=== PATIENT | male | born 1950 | race Caucasian/White ===

== ENCOUNTER 2019-04-23 06:56 | Day surgery (SDC) | payer MEDICARE, BC, SELFPAY ==
[2019-04-23 07:21] VITALS: BP 145/83; PULSE 54; RESP 16; TEMP 36.5; O2SAT 97
--- NOTE | 2019-04-23 07:24 | W.PM.HP.N ---
Date of service: 04/23/19 Time of Service: 07:24 History of Present Illness History of Present Illness Chief Complaint: Symptomatic soft tissue mass left forefoot Narrative: 68-year-old male with increasing pain associated with a soft tissue mass in the second intermetatarsal space of the left foot. He is experiencing pain with weightbearing exacerbated with shoe gear utilization. [facility] Medical History Cerebrovascular disease (Acute) Cervical radiculopathy (Acute) Glaucoma (Chronic) HTN (hypertension) (Chronic) Hyperlipidemia (Acute) Primary erectile dysfunction (Acute) Rheumatoid arthritis (Chronic) Surgical History Hx of colonoscopy (Chronic) Hx of elbow surgery (Acute) Hx of knee surgery (Acute) Social History Smoking/Tobacco Use Status: Current every day Tobacco Type: cigarettes Alcohol Intake: current Alcohol Intake frequency: holidays/special occasions only Alcohol type: wine Drug use: Occasionally Substance use type: marijuana Additional Social history: spoke with spouse Meds Home Medications and Allergies Home Medications Medication Instructions Recorded Confirmed Type aspirin [Aspir-Low] 81 mg PO DAILY 04/21/19 04/22/19 History atenolol 25 mg PO DAILY 04/21/19 04/22/19 History bimatoprost [Lumigan] 1 drp OPHTHALMIC (EYE) DAILY 04/21/19 04/22/19 History coenzyme Q10 [Co Q-10] 200 mg PO DAILY 04/21/19 04/22/19 History folic acid 1 mg PO DAILY 04/21/19 04/22/19 History hydroxychloroquine 200 mg PO BID 04/21/19 04/22/19 History lisinopril 20 mg PO DAILY 04/21/19 04/22/19 History methotrexate sodium 2.5 mg PO Q12H 04/21/19 04/22/19 History prednisone 3 mg PO DAILY 04/21/19 04/22/19 History sildenafil (pulm.hypertension) 10 mg PO 04/21/19 History simvastatin 10 mg PO DAILY 04/21/19 04/22/19 History Allergies Allergy/AdvReac Type Severity Reaction Status Date / Time No Known Allergies Allergy Unverified 04/22/19 11:54 Exam Narrative Exam Narrative: 68-year-old male looking his stated age and looking in his usual state of health. Head is normocephalic, eyes PERRLA, hearing is adequate, uvula is midline, airway looks assessable, Heart had regular rate and rhythm I detected no gallops rubs or murmurs Lung perea are clear Abdomen was soft and nontender bowel sounds appreciated DP and PT pulses are manually palpable at the ankles graded minus 2 out of 4, capillary refills under 3 seconds without edema. Feet are warm to the touch. Muscle groups are 5 out of 5 bilaterally Skeletal exam is generally benign at this time Soft tissue swelling is appreciated in the second intermetatarsal space of the left foot with radiologic findings through MRI revealing a lesion measuring 3.1 cm x 1.3 cm x 1.6 cm in the intermetatarsal space Neurologically he appears to be grossly intact at this time Impressions: Soft tissue mass second intermetatarsal space left foot Plan: Steven is being brought to the OR for exploration of the left second intermetatarsal space and removal of soft tissue pathology as found. He understands potential risk and complications pertaining to pain scarring infection, loss of sensation between the digits if the lesion is wrapped into and around neurologic structures requiring the removal. Recurrence depending on the type of lesion was reviewed. The possibility of hematoma was reviewed. The potential for revisional procedures discussed. All questions were answered. No promises made to final outcome of surgery. Informed consent has been obtained.
[2019-04-23] MEDS: Lactated Ringers 1,000 ML 80 ML IV (08:13)
[2019-04-23] MEDS: ceFAZolin 1 GM/50 ML BAG IVPB (09:08)
[2019-04-23] MEDS: Bupivacaine 0.5% Pres-Free 30 ML VIAL (09:19)
[2019-04-23] MEDS: Lidocaine 1% Multi-Dose 50 ML VIAL (09:19)
--- NOTE | 2019-04-23 09:44 | SOFT_PTH ---
PATIENT: CAROLYN BURGOS LOC: [facility] U#:[id number] AGE/SX: 68/M ROOM: RE04/23/[address]: Jake Roe : 1950 BED: DIS: 04/23/2019 SPEC #: [id number] RECD: 04/23/19 16:15 STATUS: PETE REQ #: [id number] MATTI: 04/23/19 09:[address]: Jake Roe DEPT: Surgical Specimen RECD BY: Peggy Smith ENTERED: 04/23/19 16:16 SP TYPE: SOFT OTHR DR: Cortez Tolentino Tissues: 1 - [facility] Procedures: GROSS AND MICRO LEVEL 4 Comments: [id number]
[2019-04-23] MEDS: Dexamethasone 4 MG/ML VIAL (10:09)
--- NOTE | 2019-04-23 10:21 | PDOC.DSDIS_ITS ---
Discharge Plan Disposition Patient Disposition: HOME Condition: Good Discharge Details Reason For Visit: Left second intermetatarsal space soft tissue mass Attending Provider: Jake Roe Primary Care Provider: Cortez Tolentino Home Meds and New Rx's Prescriptions: New hydrocodone-acetaminophen [Statham] 5-325 mg tablet 1 tab PO Q6H PRN (Reason: pain) Qty: 7 RF: 0 Continued lisinopril 20 mg Tablet 20 mg PO DAILY RF: 0 simvastatin 10 mg Tablet 10 mg PO DAILY RF: 0 atenolol 25 mg Tablet 25 mg PO DAILY RF: 0 methotrexate sodium 2.5 mg Tablet 2.5 mg PO Q12H RF: 0 prednisone 1 mg Tablet 3 mg PO DAILY RF: 0 folic acid 1 mg Tablet 1 mg PO DAILY RF: 0 coenzyme Q10 [Co Q-10] 200 mg Capsule 200 mg PO DAILY RF: 0 Lumigan 0.01 % Drops 1 drp OPHTHALMIC (EYE) DAILY RF: 0 sildenafil (pulm.hypertension) 10 mg/mL Suspension For Reconstitution 10 mg PO RF: 0 aspirin [Aspir-Low] 81 mg Tablet,Delayed Release (Dr/Ec) 81 mg PO DAILY RF: 0 hydroxychloroquine 200 mg Tablet 200 mg PO BID RF: 0 Discharge Instructions Activity:: Elevate Remove Dressings/Wound Care:: Do Not Remove Shower/Bathe:: Cover Diet:: Normal Diet Discharge Orders Discharge Orders: Discharge Order (Routine); Ordered 04/23/19 Ordered By: Jake Roe DS: Diagnosis Discharge Diagnosis (1) Ganglion cyst of both feet: Start date: 04/23/19 Start time: 10:21 Status: Acute Asessment and Plan: Steven is brought to the OR for exploration left second intermetatarsal space and excision of soft tissue mass that had clinical findings consistent of ganglion.
[2019-04-23 10:52] VITALS: BP 115/71; PULSE 53; RESP 16; TEMP 36.3; O2SAT 96
--- NOTE | 2019-04-23 11:21 | ROE_ITS ---
DATE OF PROCEDURE: April 23, 2019 PREOPERATIVE DIAGNOSIS: Soft tissue mass second intermetatarsal space, left foot. POSTOPERATIVE DIAGNOSIS: Same, probable ganglion. SURGEON: Stanley DavisPSamiaM. ANESTHESIA: IV General with local block of the left foot utilizing 20 cc's 50:50 mixture 1% Lidocain e plain, 0.5% Marcaine plain. ANESTHESIA PROVIDER: Khoa Becerra CRNA OPERATIVE INDICATIONS: 68-year-old male with increasing pain secondary to an enlarging mass second i ntermetatarsal space of the left foot. Nonoperative treatments have failed to provide sufficient rel ief of symptoms. He is being brought to the OR for removal of said mass. Risks and complications pinto ve been disclosed, including the potential for pain, scarring, infection, neurologic injury creating numbness between the second and third toes, potential deviation or persistent deviation of the second and third toes due to intrinsic muscle injury. Informed consent has been obtained. No promises hav e been made to the final outcome of surgery. He is fully aware of the potential for return of the le ashley. REPORT OF OPERATION: Orestes was brought to the operative suite and placed in the supine position, wher e the left foot is prepped and draped in the usual sterile podiatric fashion. A time-out was perform ed. All members of the team are in accordance. The left foot was exsanguinated, a well-padded ankle tourniquet inflated to 250 mmHg. Attention was directed to the left second intermetatarsal space where a 4 cm incision was made, endin g at the toe ball cleft second interspace. Once the skin was opened it was immediately evident that there was a soft tissue mass extruding dorsally. With careful dissection this mass was isolated and appeared to be fluid-filled. The mass was lifted from the most distal aspect of the wound and a stal k appeared to be coming from the medial side of the third MPJ. The lesion was dissected along its me dial edge all the way to about the distal third of the interspace. Further dissection was then perfo rmed, lifting it up from the floor of the interspace coming proximally, coming laterally and further dissecting to bring the mass up, and indeed it appeared to be coming from the third MPJ region. Once I had the mass pretty well isolated, I removed it from its stalk and sent it to pathology. The lesi on deflated at this point and interestingly the fluid was more liquid than viscous; I would have expe cted a thicker fluid, but nevertheless it went to pathology, mostly what it actually is. The base of the wound still had a little fibrotic tissue, which was interesting and I dissected a white fibrous piece of tissue out from the floor of the interspace, which I also put in the same container and sent off to pathology. At this time the tissue looked more anatomic, normal in appearance. Copious irri gation was performed. I repaired the medial joint capsule with simple interrupted suture #3-0 Vicryl . I repaired the deep layer with #3-0 Vicryl. I repaired the subcutaneous layer with #4-0 Vicryl; t he subcuticular layer with #4-0 Vicryl and then I closed the skin with simple interrupted suture #4-0 Monocryl. Four milligrams of dexamethasone phosphate was infused deeply into the wound. Xeroform, gauze fluff compression dressings were applied. The tourniquet was released at forty-five minutes wi th vascularity returning immediately to all toes. Orestes left the OR with vital signs stable, vascular status intact. He will be followed by me in the office next week.
== END 2019-04-23 11:30 | disposition home or self-care (01) ==
PROVIDERS: PCP Physician Assistant; Visit Provider Podiatrist
PROC: (CPT 28039; principal; 2019-04-23 09:00)
DX: L92.8 Other granulomatous disorders of the skin and subcutaneous tissue (principal); M67.272 Synovial hypertrophy, not elsewhere classified, left ankle and foot; F17.210 Nicotine dependence, cigarettes, uncomplicated
CPT/HCPCS: 28039; 88305; NC; 88304; J0690; J1100; J1885; J2001; J2250; J2405; J3010